=== PATIENT | female | born 1970 | race Caucasian/White ===

== ENCOUNTER 2022-06-13 15:55 | Inpatient (IN) | payer MEDICAID, SELFPAY ==
[2022-06-13 15:57] VITALS: BP 132/82; PULSE 103; RESP 18; TEMP 36.8; O2SAT 96
[2022-06-13 15:58] VITALS: BMI 43.2
[2022-06-13 18:05] LABS: Glucose Point of Care 124 mg/dL (70-110)
[2022-06-13] MEDS: trazodone 50 mg Tablet PO (20:15)
--- NOTE | 2022-06-13 20:15 | PC.NURSE ---
PRN trazodone for sleep given as ordered per pt request.
[2022-06-13 20:39] VITALS: BP 112/72; PULSE 89; RESP 16; O2SAT 96
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
[2022-06-14] MEDS: acetaminophen 325 mg Tablet 650 MG PO (01:43)
--- NOTE | 2022-06-14 01:45 | PC.NURSE ---
PRN tylenol given as ordered for pt complaint of headache.
[2022-06-14 06:00] VITALS: BP 109/73; PULSE 76; RESP 20; TEMP 36.4; O2SAT 98
[2022-06-14] MEDS: metformin XR 500 MG Tablet 1000 MG PO ×2 (06:30→17:04)
[2022-06-14] MEDS: cetylpyridinium Lozenge 1 EACH MUCOUS MEM (06:30)
[2022-06-14 07:49] LABS: Glucose Point of Care 162 mg/dL (70-110)
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
[2022-06-14 14:00] VITALS: BP 142/80; PULSE 99; RESP 17; TEMP 36.9; O2SAT 97
[2022-06-14 17:16] LABS: Glucose Point of Care 206 mg/dL (70-110)
[2022-06-14 18:59] LABS: Glucose Point of Care 205 mg/dL (70-110)
[2022-06-14] MEDS: gabapentin 300 mg Capsule PO (20:05)
[2022-06-14] MEDS: lamoTRIgine 25 mg Tablet PO (20:05)
[2022-06-14] MEDS: ARIPiprazole 10 mg Tablet PO (20:05)
[2022-06-14] MEDS: trazodone 50 mg Tablet PO (20:07)
[2022-06-14 20:30] VITALS: BP 128/82; PULSE 91; RESP 17; TEMP 36.7; O2SAT 96
[2022-06-15 06:00] VITALS: BP 124/83; PULSE 84; RESP 18; TEMP 36.8; O2SAT 99
[2022-06-15] MEDS: metformin XR 500 MG Tablet 1000 MG PO ×2 (06:26→16:58)
[2022-06-15] MEDS: ARIPiprazole 10 mg Tablet PO (07:56)
[2022-06-15] MEDS: lamoTRIgine 25 mg Tablet PO ×2 (07:58→20:36)
[2022-06-15] MEDS: gabapentin 300 mg Capsule PO ×3 (07:58→20:36)
[2022-06-15] MEDS: hyDROXYzine 25 mg Capsule 50 MG PO (07:58)
[2022-06-15] MEDS: pantoprazole DR 40 mg Tablet PO ×2 (07:58→17:19)
[2022-06-15 14:00] VITALS: BP 122/74; PULSE 90; RESP 16; TEMP 36.6; O2SAT 96
--- NOTE | 2022-06-15 17:41 | W.PM.NPUPNS ---
Subjective NPU Subjective: Today reporting that she is not having any side effects from the Abilify and expressing openness to considering Prozac 20 mg tomorrow. We discussed the risks benefits and alternatives and she understood and agreed to proceed as is documented in this note. She talked about wanting to make sure that things were not rushed and we agreed that we would take it 1 day at a time to determine best course of discharge planning. Mental Status Exam MSE Comments: This is an obese versus morbidly obese white female in hospital scrubs with limited grooming but adequate eye contact. No abnormal movements except for mild psychomotor retardation. Cooperative with exam in mild distress. Speech was normal rate and volume. Mood described as I felt a little better since I got here., affect is slightly subdued. Thought process, organized. Thought content: patient denies suicidal or homicidal ideation, no delusions noted or reported and denies any auditory or visual hallucinations. Attention and concentration are intact and memory appeared reliable but none were formally tested. She is alert and oriented times three. Insight and judgment are fair. Impulse control is limited. Vitals/I&O/Wt Last Vital Signs Temp 98 F 06/15/22 14:00 Pulse 90 06/15/22 14:00 Resp 16 06/15/22 14:00 BP 122/74 06/15/22 14:00 Pulse Ox 96 06/15/22 14:00 O2 Del Method 06/15/22 14:00 A&P Assessment and plan (1) History of bipolar disorder: (2) Cluster B personality disorder: (3) Blindness of both eyes: Plan This is a 51 year old white woman with a significant history of trauma, history of bipolar disorder, obsessive compulsive disorder, and post traumatic stress disorder, and genetic loading for mental health, addiction and lethality issues who presents after recently restarting her medications after a period of infrequently taking them reporting some success on medications in the past and an openness to changes in her medication at this time. 1. Continue current medications initiate Prozac 10 mg p.o. every morning and consider starting Prozac tomorrow. 2. Encourage individual, group and milieu therapy 3. Continue q-15 minute check for safety Involuntary Hold Information 96 Hour Hold: 96 Hour Involuntary Admission: No Attestations NPU Medical Necessity Statement*: Inpatient hospitalization is medically necessary and the clinically appropriate intervention at this time. We will monitor medications and make changes as indicated. Likely length of stay is three to five days. Coding Level of Care Code Acute Code for g Fwd Diagnoses History of bipolar disorder Z86.59 Cluster B personality disorder F60.89 Blindness of both eyes H54.3
[2022-06-15 18:04] LABS: Glucose Point of Care 149 mg/dL (70-110)
[2022-06-15 20:55] VITALS: BP 127/89; PULSE 98; RESP 18; TEMP 37.1; O2SAT 97
[2022-06-15] MEDS: trazodone 50 mg Tablet PO (22:14)
[2022-06-16] MEDS: metformin XR 500 MG Tablet 1000 MG PO ×2 (05:57→17:15)
[2022-06-16] MEDS: acetaminophen 325 mg Tablet 650 MG PO ×3 (05:57→21:11)
[2022-06-16 06:00] VITALS: BP 136/84; PULSE 85; RESP 18; TEMP 36.4; O2SAT 98
[2022-06-16 07:53] LABS: Glucose Point of Care 157 mg/dL (70-110)
[2022-06-16] MEDS: gabapentin 300 mg Capsule PO ×3 (09:48→21:12)
[2022-06-16] MEDS: ARIPiprazole 10 mg Tablet PO (09:48)
[2022-06-16] MEDS: pantoprazole DR 40 mg Tablet PO ×2 (09:48→17:15)
[2022-06-16] MEDS: lamoTRIgine 25 mg Tablet PO (09:48)
[2022-06-16] MEDS: fluoxetine 20 mg Capsule PO (09:50)
--- NOTE | 2022-06-16 13:18 | W.PM.NPUPNS ---
Subjective NPU Subjective: Patient presented today reporting that she had a rough day in relation to maintaining her cool but in retrospect she actually did a good job maintaining her cool given her behaviors that led to her hospitalization. She denied any issues with the addition of the Prozac. Reports that she does feel that the Abilify is helping. We discussed continuing to go day by day to determine the appropriate time for discharge but she reports being happy with the progress thus far. Mental Status Exam MSE Comments: This is an obese versus morbidly obese white female in hospital scrubs with limited grooming but adequate eye contact. No abnormal movements except for mild psychomotor retardation. Cooperative with exam in mild distress. Speech was normal rate and volume. Mood described as between better and at times irritable, affect is slightly subdued. Thought process, organized. Thought content: patient denies suicidal or homicidal ideation, no delusions noted or reported and denies any auditory or visual hallucinations. Attention and concentration are intact and memory appeared reliable but none were formally tested. She is alert and oriented times three. Insight and judgment are fair. Impulse control is limited. Vitals/I&O/Wt Last Vital Signs Temp 97.5 F L 06/16/22 06:00 Pulse 85 06/16/22 06:00 Resp 18 06/16/22 06:00 BP 136/84 06/16/22 06:00 Pulse Ox 98 06/16/22 06:00 O2 Del Method 06/15/22 14:00 A&P Assessment and plan (1) History of bipolar disorder: (2) Cluster B personality disorder: (3) Blindness of both eyes: Plan This is a 51 year old white woman with a significant history of trauma, history of bipolar disorder, obsessive compulsive disorder, and post traumatic stress disorder, and genetic loading for mental health, addiction and lethality issues who presents after recently restarting her medications after a period of infrequently taking them reporting some success on medications in the past and an openness to changes in her medication at this time. 1. Continue current medications. Initiated Abilify 10 mg p.o. every morning and started Prozac 20 mg p.o. every morning. 2. Encourage individual, group and milieu therapy 3. Continue q-15 minute check for safety Involuntary Hold Information 96 Hour Hold: 96 Hour Involuntary Admission: No Attestations NPU Medical Necessity Statement*: Inpatient hospitalization is medically necessary and the clinically appropriate intervention at this time. We will monitor medications and make changes as indicated. Likely length of stay is 2-4 days. Coding Level of Care Code Acute Code for Chg Fwd Diagnoses History of bipolar disorder Z86.59 Cluster B personality disorder F60.89 Blindness of both eyes H54.3
[2022-06-16 14:00] VITALS: BP 116/72; PULSE 79; RESP 18; TEMP 36.5; O2SAT 98
[2022-06-16] MEDS: ibuprofen 600 mg Tablet PO (15:34)
[2022-06-16 17:46] LABS: Glucose Point of Care 156 mg/dL (70-110)
[2022-06-16] MEDS: trazodone 50 mg Tablet PO (21:11)
[2022-06-16] MEDS: hyDROXYzine 25 mg Capsule 50 MG PO (21:13)
[2022-06-16 22:00] VITALS: BP 130/85; PULSE 95; RESP 17; TEMP 36.4; O2SAT 95
[2022-06-17] MEDS: lamoTRIgine 25 mg Tablet PO ×3 (00:44→20:40)
[2022-06-17] MEDS: ibuprofen 600 mg Tablet PO ×2 (00:44→17:20)
[2022-06-17 06:00] VITALS: BP 123/75; PULSE 109; RESP 18; TEMP 36.7; O2SAT 96
--- NOTE | 2022-06-17 06:30 | PC.NURSE ---
at bedtime tylenol given for headache which patient has had all day, Trazodone for sleep, and vistaril for anxiety. pt woke up 0045 and stated she still has headache, ibuprofen given, discussed headache, pt stated she has history of sleep apnea, elevated head of bed, pt has slept remainder of night.
[2022-06-17] MEDS: ondansetron 4 MG Tablet PO (08:20)
[2022-06-17 08:35] LABS: Glucose Point of Care 137 mg/dL (70-110)
[2022-06-17] MEDS: ARIPiprazole 10 mg Tablet PO (09:20)
[2022-06-17] MEDS: metformin XR 500 MG Tablet 1000 MG PO ×2 (09:20→17:19)
[2022-06-17] MEDS: gabapentin 300 mg Capsule PO ×3 (09:20→20:40)
[2022-06-17] MEDS: pantoprazole DR 40 mg Tablet PO ×2 (09:20→17:19)
[2022-06-17] MEDS: fluoxetine 20 mg Capsule PO (09:21)
[2022-06-17] MEDS: loratadine 10 mg Tablet PO (09:21)
[2022-06-17] MEDS: fluticasone nasal spray 16gm Btl 2 SPRAY NASAL (09:21)
[2022-06-17 14:00] VITALS: BP 160/86; PULSE 86; RESP 18; TEMP 36.6; O2SAT 93
--- NOTE | 2022-06-17 15:15 | P.NPUPN_ITS ---
Subjective NPU Subjective: Patient presented today reporting that she is feeling better and feeling like she is moving in the right direction. She was able to talk to her brother and had agreed to stay a little longer. We discussed the risk benefits and alternatives of initiating the long-acting injectable and she understood and agreed to proceed as is documented in this note. We discussed the plan for discharge in the morning. Mental Status Exam MSE Comments: This is an obese versus morbidly obese white female in hospital scrubs with limited grooming but adequate eye contact. No abnormal movements except for mild psychomotor retardation. Cooperative with exam in mild distress. Speech was normal rate and volume. Mood described as better, affect is slightly subdued. Thought process, organized. Thought content: patient denies suicidal or homicidal ideation, no delusions noted or reported and denies any auditory or visual hallucinations. Attention and concentration are intact and memory appeared reliable but none were formally tested. She is alert and oriented times three. Insight and judgment are fair. Impulse control is limited. Vitals/I&O/Wt Last Vital Signs Temp 98.0 F 06/17/22 06:00 Pulse 109 H 06/17/22 06:00 Resp 18 06/17/22 06:00 BP 123/75 06/17/22 06:00 Pulse Ox 96 06/17/22 06:00 O2 Del Method 06/17/22 06:00 A&P Assessment and plan (1) History of bipolar disorder: (2) Cluster B personality disorder: (3) Blindness of both eyes: Plan This is a 51 year old white woman with a significant history of trauma, history of bipolar disorder, obsessive compulsive disorder, and post traumatic stress disorder, and genetic loading for mental health, addiction and lethality issues who presents after recently restarting her medications after a period of infrequently taking them reporting some success on medications in the past and an openness to changes in her medication at this time. 1. Continue current medications. Initiated Abilify 10 mg p.o. every morning and started Prozac 20 mg p.o. every morning. Initiate Abilify maintain a 400 mg IM q. monthly. 2. Encourage individual, group and milieu therapy 3. Continue q-15 minute check for safety Involuntary Hold Information 96 Hour Hold: 96 Hour Involuntary Admission: No Attestations NPU Medical Necessity Statement*: Inpatient hospitalization is medically necessary and the clinically appropriate intervention at this time. We will monitor medic ations and make changes as indicated. Likely length of stay is 1-3 days. Coding Level of Care Code Acute Code for Chg Fwd Diagnoses History of bipolar disorder Z86.59 Cluster B personality disorder F60.89 Blindness of both eyes H54.3
[2022-06-17] MEDS: ARIPiprazole Maintena 400 MG IM (17:19)
[2022-06-17 17:22] LABS: Glucose Point of Care 120 mg/dL (70-110)
[2022-06-17] MEDS: trazodone 50 mg Tablet PO (21:21)
[2022-06-17 22:00] VITALS: RESP 16
[2022-06-18 06:00] VITALS: BP 124/84; PULSE 89; RESP 18; TEMP 37; O2SAT 96
[2022-06-18] MEDS: metformin XR 500 MG Tablet 1000 MG PO (06:25)
[2022-06-18 08:46] LABS: Glucose Point of Care 134 mg/dL (70-110)
[2022-06-18] MEDS: ARIPiprazole 10 mg Tablet PO (09:08)
[2022-06-18] MEDS: lamoTRIgine 25 mg Tablet PO (09:08)
[2022-06-18] MEDS: gabapentin 300 mg Capsule PO (09:08)
[2022-06-18] MEDS: fluoxetine 20 mg Capsule PO (09:08)
[2022-06-18] MEDS: loratadine 10 mg Tablet PO (09:08)
[2022-06-18] MEDS: pantoprazole DR 40 mg Tablet PO (09:08)
[2022-06-18] MEDS: fluticasone nasal spray 16gm Btl 2 SPRAY NASAL (09:44)
[2022-06-18 12:20] LABS: Glucose Point of Care 159 mg/dL (70-110)
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
[2022-06-18 13:09] VITALS: BP 124/84; PULSE 89; RESP 18; TEMP 37; O2SAT 96
== END 2022-06-18 13:36 | disposition home or self-care (01) | DRG 885 ==
PROVIDERS: Admitting Provider Psychiatry & Neurology Psychiatry; Visit Provider Psychiatry & Neurology Psychiatry
DX: F31.9 Bipolar disorder, unspecified (principal); Z68.41 Body mass index [BMI] 40.0-44.9, adult; R45.851 Suicidal ideations; E11.42 Type 2 diabetes mellitus with diabetic polyneuropathy; E66.01 Morbid (severe) obesity due to excess calories; Z91.14 Patient's other noncompliance with medication regimen; F42.9 Obsessive-compulsive disorder, unspecified; F41.9 Anxiety disorder, unspecified; F43.10 Post-traumatic stress disorder, unspecified; F12.90 Cannabis use, unspecified, uncomplicated; Z81.8 Family history of other mental and behavioral disorders; Q86.0 Fetal alcohol syndrome (dysmorphic); Z87.442 Personal history of urinary calculi; E11.22 Type 2 diabetes mellitus with diabetic chronic kidney disease; N18.9 Chronic kidney disease, unspecified; K21.9 Gastro-esophageal reflux disease without esophagitis; E66.9 Obesity, unspecified; H54.8 Legal blindness, as defined in USA
CPT/HCPCS: 36416; 82962; 96372; 97150; 97165; 99238; Q0162